=== PATIENT | female | born 1990 ===

== ENCOUNTER 2018-11-27 09:57 | Outpatient (CLI) | payer OTHER | END 2018-11-27 10:01 | disposition home or self-care (01) | LOC: RAD 09:57 | DX: M25.532 Pain in left wrist (principal) ==

== ENCOUNTER 2019-01-28 06:00 | Day surgery (SDC) | payer OTHER | END 2019-01-28 11:45 | disposition home or self-care (01) | LOC: CIR.AMB 06:00 | DX: M67.432 Ganglion, left wrist (principal) ==

== ENCOUNTER 2019-04-16 20:42 | Emergency (ER) | payer OTHER ==
[~2019-04-16] VITALS: Ht 152.4 cm; Wt 48.5 kg
== END 2019-04-17 00:48 | disposition home or self-care (01) ==
LOC: ER 20:42
DX: K29.60 Other gastritis without bleeding (principal)